=== PATIENT | female | born 2005 | race African-American/Black ===

== ENCOUNTER 2024-01-17 11:54 | Emergency (ER) | payer OTHER ==
[~2024-01-17] VITALS: Ht 172.7 cm; Wt 73.0 kg
[2024-01-17] MEDS ORDERED: XELJ5TAB PO (12:09)
[2024-01-17 13:50] LABS: BASO % 0.3 % (0.0-1.0); EOS % 0.5 % (0.0-3.0); HEMATOCRIT 37.7 % (36.0-47.0); HEMOGLOBIN 12.1 g/dl (12.0-15.5); LYMPH # 2.1 10^3/uL (1.5-5.0); LYMPH % 32.8 % (24.0-44.0); MEAN CORPUSCULAR HEMOGLOBIN 26.8 pg (27.0-33.0); MEAN CORPUSCULAR HGB CONC 32.1 g/dl (32.0-36.5); MEAN CORPUSCULAR VOLUME 83.6 fl (80.0-96.0); MONO # 0.5 10^3/uL (0.0-0.8); MONO % 7.6 % (2.0-8.0); NEUTROPHILS # 3.7 10^3/uL (1.5-8.5); NEUTROPHILS % 58.5 % (36.0-66.0); PLATELET COUNT, AUTOMATED 231 10^3/uL (150-450); RED BLOOD COUNT 4.51 10^6/uL (4.00-5.40); WHITE BLOOD COUNT 6.3 10^3/uL (4.0-10.0)
[2024-01-17 14:03] LABS: APPEARANCE, URINE HAZY (CLEAR); BACTERIA, URINE AUTO NEGATIVE (NEGATIVE); BILIRUBIN, URINE AUTO NEGATIVE (NEGATIVE); BLOOD, URINE BLOOD 2+ (NEGATIVE); COLOR, URINE AMBER (YELLOW); GLUCOSE, URINE (UA) AUTO NEGATIVE (NEGATIVE); KETONE, URINE AUTO NEGATIVE (NEGATIVE); LEUKOCYTE ESTERASE, URINE AUTO TRACE (NEGATIVE); MUCUS, URINE LARGE (NEGATIVE); NITRITE, URINE AUTO NEGATIVE (NEGATIVE); PROTEIN, URINE AUTO NEGATIVE (NEGATIVE); RBC, URINE AUTO 0 /HPF (0-3); SPECIFIC GRAVITY URINE AUTO 1.024 (1.002-1.035); SQUAMOUS EPITHELIAL CELL UR AU 4 /HPF (0-6); WBC, URINE AUTO 2 /HPF (0-3)
[2024-01-17 14:11] LABS: BLOOD UREA NITROGEN 13 MG/DL (9-23); CALCIUM LEVEL 9.6 MG/DL (8.5-10.1); CARBON DIOXIDE LEVEL 28 MMOL/L (20-31); CHLORIDE LEVEL 108 MMOL/L (98-107); CREATININE FOR GFR 0.81 MG/DL (0.55-1.30); GLUCOSE, FASTING 89 MG/DL (60-100); POTASSIUM SERUM 4.3 MMOL/L (3.5-5.1); SODIUM LEVEL 140 MMOL/L (136-145)
[2024-01-17 14:18] LABS: HCG, SERUM QUALITATIVE NEGATIVE (NEGATIVE)
[2024-01-17 14:35] VITALS: BP 108/69; TEMP 96.8; O2SAT 97
== END 2024-01-17 14:37 | disposition home or self-care (01) ==
LOC: M ED 11:54
DX: N93.9 Abnormal uterine and vaginal bleeding, unspecified (principal)

== ENCOUNTER 2024-04-15 17:12 | Emergency (ER) | payer OTHER ==
[~2024-04-15] VITALS: Ht 172.7 cm; Wt 68.0 kg
[~2024-04-15 17:12] MED LIST: XELJ5TAB PO
[2024-04-15 17:49] LABS: BASO % 0.2 % (0.0-1.0); EOS % 0.4 % (0.0-3.0); HEMATOCRIT 35.5 % (36.0-47.0); HEMOGLOBIN 11.5 g/dl (12.0-15.5); LYMPH # 2.8 10^3/uL (1.5-5.0); LYMPH % 53.2 % (24.0-44.0); MEAN CORPUSCULAR HEMOGLOBIN 26.9 pg (27.0-33.0); MEAN CORPUSCULAR HGB CONC 32.4 g/dl (32.0-36.5); MEAN CORPUSCULAR VOLUME 82.9 fl (80.0-96.0); MONO # 0.4 10^3/uL (0.0-0.8); MONO % 8.1 % (2.0-8.0); NEUTROPHILS % 37.9 % (36.0-66.0); PLATELET COUNT, AUTOMATED 202 10^3/uL (150-450); RED BLOOD COUNT 4.28 10^6/uL (4.00-5.40); WHITE BLOOD COUNT 5.3 10^3/uL (4.0-10.0)
[2024-04-15 18:18] LABS: BLOOD UREA NITROGEN 18 MG/DL (9-23); CARBON DIOXIDE LEVEL 27 MMOL/L (20-31); CHLORIDE LEVEL 107 MMOL/L (98-107); CREATININE FOR GFR 0.75 MG/DL (0.55-1.30); GLUCOSE, FASTING 100 MG/DL (60-100); POTASSIUM SERUM 3.9 MMOL/L (3.5-5.1); SODIUM LEVEL 141 MMOL/L (136-145)
[2024-04-15 18:21] LABS: THYROID STIMULATING HORMONE 0.759 uIU/ML (0.48-4.17)
[2024-04-15 21:00] LABS: IRON (FE) 60 UG/DL (50-170); PERCENT SATURATION 18.1 % (13.2-45.0); TOTAL IRON BINDING CAPACITY 331 UG/DL (250-425)
[2024-04-15 21:03] LABS: FERRITIN 62.6 NG/ML (7.3-270.7); FOLATE 13.18 NG/ML (>5.4); VITAMIN B12 LEVEL 831 PG/ML (211-911)
[2024-04-15 21:30] VITALS: BP 92/51; TEMP 98.9; O2SAT 99
== END 2024-04-15 21:47 | disposition home or self-care (01) ==
LOC: M ED 17:12 → EDBD 17:12 → M ED 21:47
DX: R55 Syncope and collapse (principal); Z79.899 Other long term (current) drug therapy

== ENCOUNTER 2024-08-05 20:21 | Emergency (ER) | payer OTHER ==
[~2024-08-05] VITALS: Ht 172.7 cm; Wt 66.3 kg
[2024-08-05 20:48] LABS: BASO % 0.3 % (0.0-1.0); EOS # 0.1 10^3/uL (0.0-0.5); EOS % 1.3 % (0.0-3.0); HEMATOCRIT 36.4 % (36.0-47.0); LYMPH # 1.8 10^3/uL (1.5-5.0); LYMPH % 46.1 % (24.0-44.0); MEAN CORPUSCULAR HEMOGLOBIN 26.6 pg (27.0-33.0); MEAN CORPUSCULAR VOLUME 80.7 fl (80.0-96.0); MONO # 0.4 10^3/uL (0.0-0.8); MONO % 9.3 % (2.0-8.0); NEUTROPHILS # 1.7 10^3/uL (1.5-8.5); NEUTROPHILS % 42.7 % (36.0-66.0); PLATELET COUNT, AUTOMATED 183 10^3/uL (150-450); RED BLOOD COUNT 4.51 10^6/uL (4.00-5.40)
[2024-08-05 21:17] LABS: HCG, SERUM QUALITATIVE NEGATIVE (NEGATIVE); LIPASE 33 U/L (12-53)
[2024-08-05 21:19] LABS: ALKALINE PHOSPHATASE 49 U/L (35-104); ALT/SGPT 13 U/L (7.0-40); AST/SGOT 13 U/L (<34); BILIRUBIN,DIRECT 0.5 MG/DL (<0.4); BILIRUBIN,TOTAL 1.4 MG/DL (0.3-1.2); BLOOD UREA NITROGEN 10 MG/DL (9-23); CALCIUM LEVEL 9.2 MG/DL (8.5-10.1); CARBON DIOXIDE LEVEL 25 MMOL/L (20-31); CHLORIDE LEVEL 108 MMOL/L (98-107); CREATININE FOR GFR 0.82 MG/DL (0.55-1.30); GLOMERULAR FILTRATION RATE > 90.0 (>60); GLUCOSE, FASTING 90 MG/DL (60-100); POTASSIUM SERUM 3.5 MMOL/L (3.5-5.1); SODIUM LEVEL 142 MMOL/L (136-145); TOTAL PROTEIN 7.1 G/DL (5.7-8.2)
[2024-08-06] MEDS: ONDANSETRON 4MG ORAL DISINTEGRATING TAB PO ONE (01:23)
[2024-08-06] MEDS ORDERED: ONDA-282 PO (01:24)
[2024-08-06 01:51] VITALS: BP 103/60; TEMP 98.9; O2SAT 100
== END 2024-08-06 01:56 | disposition home or self-care (01) ==
LOC: M ED 20:21
DX: R19.7 Diarrhea, unspecified (principal); R11.0 Nausea; Z79.899 Other long term (current) drug therapy

== ENCOUNTER → 2024-12-30 | Outpatient (CLI) | payer OTHER ==
[~2024-12-30] MED LIST changes: +ONDA-282 PO
[2024-12-30 17:34] LABS: Trichomonas vaginalis (AMP) NOT DETECTED (NEGATIVE)
[2024-12-30 17:35] LABS: GC DNA AMPLIFICATION NEGATIVE (NEGATIVE)
[2024-12-30 17:38] LABS: HEPATITIS C VIRUS ABY INDEX 0.04 INDEX (<0.8); HIV 1&2 SCREEN NEGATIVE (NEGATIVE)
[2024-12-30 18:04] LABS: PLATELET COUNT, AUTOMATED 189 10^3/uL (150-450)
== END ==
LOC: M PLALAB 13:07
PROVIDERS: ATTEND Obstetrics & Gynecology
DX: Z34.81 Encounter for supervision of other normal pregnancy, first trimester (principal)

== ENCOUNTER → 2025-03-02 | Outpatient (REF) | payer OTHER | LOC: M PLALAB 11:36 | PROVIDERS: ATTEND Student in an Organized Health Care Education/Training Program | DX: Z34.80 Encounter for supervision of other normal pregnancy, unspecified trimester (principal) ==

== ENCOUNTER → 2025-03-25 | Outpatient (CLI) | payer OTHER | LOC: M WHC 06:44 | PROVIDERS: ATTEND Student in an Organized Health Care Education/Training Program | DX: Z34.80 Encounter for supervision of other normal pregnancy, unspecified trimester (principal) ==